=== PATIENT | female | born 1985 | race Two or more races ===

== ENCOUNTER 2018-04-25 11:27 | Emergency (ER) | payer OTHER ==
[2018-04-25 11:49] LABS: URINE HCG POC HCG NEGATIVE (Negative)
[2018-04-25 12:04] LABS: BILIRUBIN,URINE NEGATIVE (NEG); CLARITY,URINE CLEAR; COLOR,URINE YELLOW; GLUCOSE,URINE NEGATIVE (NEG); NITRITE,URINE NEGATIVE (NEG); PH,URINE 6.5; PROTEIN,URINE NEGATIVE (NEG-TRACE)
[2018-04-25 12:11] LABS: BACTERIA,URINE FEW /HPF (0-FEW); RBC,URINE 0 /HPF (0-2); SQUAMOUS EPITHELIAL CELL,UR FEW /LPF
[2018-04-25] MEDS: diazePAM 5 MG TABLET PO (12:28)
[2018-04-25] MEDS: KETOROLAC 60 MG/2 ML INJ. IM (12:29)
== END 2018-04-25 13:03 | disposition home or self-care (01) ==
LOC: ER 11:27
DX: M54.5 Low back pain (principal); M25.551 Pain in right hip
CPT/HCPCS: 81001; 81025; 96372; 99283; J1885

== ENCOUNTER → 2018-05-03 | Outpatient (CLI) | payer OTHER ==
[2018-05-03 07:45] LABS: ADD MAN DIFF? NO
[2018-05-03 07:51] LABS: BASO % 0 % (0-3); EOS % 1 % (0-3); HEMATOCRIT 39.2 % (36.0-47.0); HEMOGLOBIN 13.4 g/dL (12.0-15.5); LYMPH # 1.8 x10^3/uL (1.0-4.8); LYMPH % 34 % (24-48); MEAN CORPUSCULAR HEMOGLOBIN 32 pg (25-35); MEAN CORPUSCULAR HGB CONC 34 g/dL (31-37); MEAN CORPUSCULAR VOLUME 93 fL (79-100); MONO # 0.3 x10^3/uL (0.0-1.1); MONO % 6 % (0-9); NEUT # 3.2 x10^3uL (1.8-7.7); NEUT % 59 % (31-73); PLATELET COUNT 188 x10^3/uL (140-400); RED BLOOD COUNT 4.23 x10^6/uL (3.50-5.40); RED CELL DISTRIBUTION WIDTH 12.6 % (11.5-14.5); WHITE BLOOD COUNT 5.4 x10^3/uL (4.0-11.0)
[2018-05-03 08:11] LABS: ALBUMIN 4.2 g/dL (3.4-5.0); ALBUMIN/GLOBULIN RATIO 1.1 (1.0-1.7); ALK PHOS 51 U/L (46-116); ALT (SGPT) 18 U/L (14-59); ANION GAP 10 (6-14); AST (SGOT) 19 U/L (15-37); BLOOD UREA NITROGEN 12 mg/dL (7-20); BUN/CREATININE RATIO 20 (6-20); CALCIUM 9.3 mg/dL (8.5-10.1); CARBON DIOXIDE 28 mmol/L (21-32); CHLORIDE 102 mmol/L (98-107); CHOLESTEROL 163 mg/dL (0-200); CREATININE 0.6 mg/dL (0.6-1.0); GFR 114.4; GLUCOSE 84 mg/dL (70-99); HDLC 73 mg/dL (40-60); LDLC 82 mg/dL (0-100); NON-HDL CHOLESTEROL 90 mg/dL (0-129); POTASSIUM 3.4 mmol/L (3.5-5.1); SODIUM 140 mmol/L (136-145); TOTAL BILIRUBIN 0.5 mg/dL (0.2-1.0); TOTAL PROTEIN 8.1 g/dL (6.4-8.2); TRIGLYCERIDES 38 mg/dL (0-150); VLDLC 8 mg/dL (0-40)
[2018-05-03 08:20] LABS: THYROID STIM HORMONE (TSH) 1.258 uIU/mL (0.358-3.74)
[2018-05-03 08:21] LABS: CHOLESTEROL/HDL RATIO 2.2
[2018-05-03 15:27] LABS: HEMOGLOBIN A1C 5.2 % (4.8-5.6)
== END | disposition home or self-care (01) ==
LOC: LAB 07:36
DX: Z00.00 Encounter for general adult medical examination without abnormal findings (principal); Z13.220 Encounter for screening for lipoid disorders; Z13.1 Encounter for screening for diabetes mellitus; E01.0 Iodine-deficiency related diffuse (endemic) goiter; Z83.3 Family history of diabetes mellitus; Z82.49 Family history of ischemic heart disease and other diseases of the circulatory system
CPT/HCPCS: 36415; 80053; 80061; 83036; 84439; 84443; 85025